=== PATIENT | female | born 1930 | race Caucasian/White ===

== ENCOUNTER 2021-03-06 18:25 | Emergency (ER) | payer MEDICARE, OTHER ==
[2021-03-06 19:47] LABS: ALBUMIN 3.7 g/dL (3.4-5.0); BILIRUBIN - TOTAL 0.5 mg/dL (0.2-1.0); GLOBULIN (CALCULATION) 3.1 g/dL; POTASSIUM 4.6 mmol/L (3.5-5.1); TOTAL PROTEIN 6.8 g/dL (6.4-8.2)
[2021-03-06 19:48] LABS: BASOPHIL 2.3 % (0-2); EOSINOPHIL 0.8 % (0-7); HCT 31.8 % (37.0-47.0); HGB 10.7 g/dl (12.5-16.0); LYMPHOCYTE 26.3 % (15-48); MCH 36.1 pg (25.0-31.0); MCHC 33.6 g/dL (32.0-36.0); MCV 107.4 fL (78.0-100.0); MONOCYTE 6.1 % (0-12); MPV 10.9 fL (6.0-9.5); NEUTROPHIL 63.7 % (41-80); NRBC 0; PLT 202 K/uL (150-400); RBC 2.96 M/uL (4.20-5.40); RDW 13.9 % (11.5-14.0)
[2021-03-06 20:24] LABS: WBC 2.6 K/uL (4.0-10.5)
[2021-04-08] MEDS ORDERED: COZAAR100 MG PO (16:32)
[2021-04-08] MEDS ORDERED: NP THYROID60 MG PO (16:32)
[2021-04-08] MEDS ORDERED: METOPROLOL SUC100 MG PO ×2 (16:34)
[2021-04-08] MEDS ORDERED: ADALAT CC30 MG PO (16:35)
[2021-04-08] MEDS ORDERED: [UNRECOGNIZED DRUG - OTHER] PO (16:36)
[2021-04-10] MEDS ORDERED: ULTRAM50 MG PO (09:08)
== END 2021-03-06 22:56 | disposition home or self-care (01) ==
LOC: FER 18:25
PROVIDERS: Emergency Medicine
DX: J90 Pleural effusion, not elsewhere classified (principal); Z85.528 Personal history of other malignant neoplasm of kidney; Z85.3 Personal history of malignant neoplasm of breast; Z88.5 Allergy status to narcotic agent; Z88.0 Allergy status to penicillin
CPT/HCPCS: 36415; 71045; 71250; 80053; 84484; 85025; 85379; 93005

== ENCOUNTER → 2021-04-10 | Day surgery (SDC) | payer MEDICARE, OTHER ==
[~2021-04-10] VITALS: Ht 154.9 cm; Wt 63.5 kg
[~2021-04-10] MED LIST: ADALAT CC30 MG PO; COZAAR100 MG PO; METOPROLOL SUC100 MG PO; NP THYROID60 MG PO; ULTRAM50 MG PO; [UNRECOGNIZED DRUG - OTHER] PO
[2021-04-10 07:33] LABS: HCT 31.8 % (37.0-47.0); HGB 10.6 g/dl (12.5-16.0); MCH 35.5 pg (25.0-31.0); MCHC 33.3 g/dL (32.0-36.0); MCV 106.4 fL (78.0-100.0); MPV 10.3 fL (6.0-9.5); RBC 2.99 M/uL (4.20-5.40); WBC 3.3 K/uL (4.0-10.5)
[2021-04-10 08:11] LABS: BUN/CREAT RATIO (CALC) 17.8 RATIO; CREATININE 2.08 mg/dL (0.51-0.95); POTASSIUM 4.7 mmol/L (3.5-5.1)
== END | disposition home or self-care (01) ==
LOC: FAS 06:19
PROVIDERS: Anesthesiology
DX: J91.0 Malignant pleural effusion (principal); C50.919 Malignant neoplasm of unspecified site of unspecified female breast; J93.9 Pneumothorax, unspecified; I10 Essential (primary) hypertension; M19.90 Unspecified osteoarthritis, unspecified site; M81.0 Age-related osteoporosis without current pathological fracture; K25.9 Gastric ulcer, unspecified as acute or chronic, without hemorrhage or perforation; Z79.899 Other long term (current) drug therapy; Z88.1 Allergy status to other antibiotic agents; Z88.8 Allergy status to other drugs, medicaments and biological substances; Z90.49 Acquired absence of other specified parts of digestive tract; Z90.10 Acquired absence of unspecified breast and nipple; Z96.659 Presence of unspecified artificial knee joint
CPT/HCPCS: 36415; 71045; 80048; J0690; J2250; J3010; J7120